=== PATIENT | female | born 1975 | race Caucasian/White ===

== ENCOUNTER 2020-01-07 04:23 | Observation (INO) | payer BC ==
[2020-01-07] VITALS (7 sets, daily range): BP systolic 110–153; BP diastolic 63–83
[~2020-01-07] VITALS: Ht 167.6 cm; Wt 106.2 kg
--- NOTE | 2020-01-07 04:48 | NUR ---
Pt had some nausea on arrival but is now asking for water at this time.
--- NOTE | 2020-01-07 05:25 | NUR ---
Iv placed in right hand 22 gauge.4th start attempt.
[2020-01-07 05:33] LABS: ALBUMIN 3.8 gm/dl (3.1-4.5); ALKALINE PHOSPHATASE 82 U/L (45-117); BUN 16 mg/dl (7-24); CHLORIDE 108 mmol/L (98-107); CREATININE 0.72 mg/dL (0.55-1.02); POTASSIUM 3.2 mmol/L (3.5-5.1); SGOT/AST 13 IU/L (3-35); SGPT/ALT 28 U/L (12-78); SODIUM 140 mmol/L (136-145); TOTAL PROTEIN 6.9 gm/dL (6.4-8.2)
--- NOTE | 2020-01-07 05:39 | NUR ---
Pt states nausea is starting to feel better after zofran,
[2020-01-07 06:00] LABS: BASO # 0.1 10*3/uL (0.0-0.1); BASO % 0.8 % (0.0-1.0); EOS # 0.2 10*3/uL (0.0-0.4); EOS % 2.4 % (1.0-4.0); HEMATOCRIT 34.1 % (37.0-47.0); LYMPH # 2.1 10*3/uL (1.3-4.4); LYMPH % 24.5 % (27.0-41.0); MEAN CELL VOLUME 88.3 fl (81.0-99.0); MEAN CORPUSCULAR HGB 30.3 pg (27.0-31.0); MEAN CORPUSCULAR HGB CONC 34.3 g/dl (33.0-37.0); MEAN PLATELET VOLUME 9.4 fl (9.6-12.3); MONO # 0.6 10*3/uL (0.1-1.0); MONO % 6.6 % (3.0-9.0); NEUT # 5.5 10*3/uL (2.3-7.9); NEUT % 65.5 % (47.0-73.0); PLATELET COUNT AUTOMATED 273 10*3/uL (130-400); RED BLOOD COUNT 3.86 10*6/uL (4.10-5.10); RED CELL DISTRI WIDTH 12.3 % (0-14.5); WHITE BLOOD COUNT 8.4 10*3/uL (4.8-10.8)
--- NOTE | 2020-01-07 07:13 | NUR ---
Transfer of care to Anitra jean.
--- NOTE | 2020-01-07 07:44 | NUR ---
PT RESTING. GAVE A WARM BLANKET. STATES "THE ROOM IS STILL SPINNING". DENIES ANY NEEDS AT THIS TIME. WILL CONTINUE TO MONITOR.
--- NOTE | 2020-01-07 08:40 | NUR ---
PT TO CT.
--- NOTE | 2020-01-07 08:54 | NUR ---
PT BACK FROM CT. [employer] INTACT. CALL LIGHT WITHIN REACH.
--- NOTE | 2020-01-07 09:38 | NUR ---
PT STATES THAT SHE IS FEELING A LITTLE BETTER. SHE STATES "SOMETHING STILL ISNT QUITE RIGHT". UPON QUESTIONING SHE BELIEVES SHE IS SEEING TRAILS WHEN TURNING HER HEAD FROM LEFT TO RIGHT. STATES HER STOMACH IS STILL SLIGHTLY NAUSEATED. PT UP TO BEDSIDE COMMODE AND BACK TO BED AT THIS TIME. DENIES ANY FURTER NEEDS. [employer] INTACT. CALL LIGHT WITHIN REACH. WILL CONTINUE TO MONITOR.
[2020-01-07] MEDS ORDERED: BIOTIN5000 MC1 SL (11:45)
[2020-01-07] MEDS ORDERED: ZESTRIL10 MG PO (11:49)
[2020-01-07] MEDS ORDERED: NORVASC5 MG PO (11:49)
[2020-01-07] MEDS ORDERED: FLONASE ALLERG9.9 ML NAS (11:50)
--- NOTE | 2020-01-07 12:00 | NUR ---
Dr. Whiteside in to see pt. Notified that pt med rec updated.
[2020-01-08] VITALS: BP 113/62
[2020-01-08 07:49] LABS: BUN 11 mg/dl (7-24); CHLORIDE 111 mmol/L (98-107); POTASSIUM 3.8 mmol/L (3.5-5.1); SODIUM 141 mmol/L (136-145)
[2020-01-08 08:00] VITALS: BP 126/70
--- NOTE | 2020-01-08 08:00 | NUR ---
Patient resting quietly with no c/o discomfort. Respirations easy and regular. Denies dizziness. Vital signs stable. No overt distress. JAMESON GALLEGOS R
[2020-01-08 08:01] LABS: CREATININE 0.73 mg/dL (0.55-1.02); THYROID STIM HORMONE (HS) 0.625 uIU/ml (0.358-4.75)
[2020-01-08 10:08] LABS: VITAMIN D, 25-HYDROXY 19.1 ng/mL (30-100)
--- NOTE | 2020-01-08 11:47 | NUR ---
Discharge instructions reviewed with patient/family. Patient receptive and verbalizes understanding. Follow-up care arranged. Written instructions given to patient/family. JAMESON GALLEGOS
--- NOTE | 2020-01-08 14:36 | NUR ---
Electronic Pagination System Operator in to talk to patient. Patient states lives at HOME with . There are BASEMENT steps in the home. Physician: ALPHONSE AL Pharmacy: [facility] health services: NONE Patient's level of ADLs: INDEPENDENT Patient has working utilities: YES DME: NONE Follow-up physician's appointment after d/c: WILL BE MADE BY HOSPITALIST NURSE DIRECTOR ON DISCHARGE Does patient want to access PORTAL?: NO Discharge plan PT LIVES AT HOME WITH HER AND IS INDEPENDENT IN HIS CARE. DENIES SHE WILL HAVE ANY NEEDS ON DISCHARGE. PLAN IS TO RETURN [facility] WHEN MEDICALLY STABLE. WILL CONTINUE TO FOLLOW. STATES SHE WILL HAVE A RIDE HOME. . KAMRON WALTER
== END 2020-01-08 11:47 | disposition home or self-care (01) ==
LOC: ED 04:23 → 4E 10:54 → EDHOLD 10:54 → 4E 11:10
PROVIDERS: Emergency Medicine; Family Medicine; ADMIT Family Medicine
DX: H81.10 Benign paroxysmal vertigo, unspecified ear (principal); R42 Dizziness and giddiness; E87.6 Hypokalemia; I10 Essential (primary) hypertension; R11.10 Vomiting, unspecified; R63.1 Polydipsia; R26.81 Unsteadiness on feet; R73.9 Hyperglycemia, unspecified

== ENCOUNTER 2021-03-15 17:59 | Emergency (ER) | payer BC ==
[~2021-03-15] VITALS: Ht 167.6 cm; Wt 102.1 kg
[~2021-03-15 17:59] MED LIST: BIOTIN5000 MC1 SL; FLONASE ALLERG9.9 ML NAS; NORVASC5 MG PO; ZESTRIL10 MG PO
[2021-03-15] MEDS ORDERED: MEDROL DOSEPAK4 MG PO ×3 (19:45→19:55)
== END 2021-03-15 19:55 | disposition home or self-care (01) ==
LOC: ED 17:59
DX: T63.441A Toxic effect of venom of bees, accidental (unintentional), initial encounter (principal); M79.672 Pain in left foot; R42 Dizziness and giddiness; R20.2 Paresthesia of skin; H93.13 Tinnitus, bilateral; Z79.899 Other long term (current) drug therapy; Y92.096 Garden or yard of other non-institutional residence as the place of occurrence of the external cause